=== PATIENT | male | born 1960 | race Asian ===

== ENCOUNTER 2020-01-10 05:51 | Day surgery (SDC) | payer OTHER, SELFPAY ==
[~2020-01-10] VITALS: Ht 170.2 cm; Wt 100.7 kg
[2020-01-10] MEDS ORDERED: LIDOCAINE 2% 100 MG/5 ML UJET TP ONE (07:44)
[2020-01-10] MEDS ORDERED: KETOROLAC 60 MG/2 ML VIAL IM ONE (07:44)
== END 2020-01-10 08:30 | disposition home or self-care (01) ==
LOC: MDS 05:51 → MFCC 05:53 → MDS 08:30
PROVIDERS: ATTEND Internal Medicine Gastroenterology
DX: Z12.11 Encounter for screening for malignant neoplasm of colon (principal); D12.3 Benign neoplasm of transverse colon; D12.8 Benign neoplasm of rectum; Z86.010 Personal history of colon polyps; F17.210 Nicotine dependence, cigarettes, uncomplicated; I10 Essential (primary) hypertension; E11.9 Type 2 diabetes mellitus without complications; K21.9 Gastro-esophageal reflux disease without esophagitis; J45.909 Unspecified asthma, uncomplicated; G47.30 Sleep apnea, unspecified; Z88.0 Allergy status to penicillin; Z88.1 Allergy status to other antibiotic agents; Z20.828 Contact with and (suspected) exposure to other viral communicable diseases
CPT/HCPCS: 45380; J1885; U0003